=== PATIENT | female | born 1995 | race Caucasian/White ===

== ENCOUNTER 2016-03-13 01:13 | Emergency (ER) | payer OTHER ==
[2016-03-13 01:36] VITALS: RESP 18
[2016-03-13] MEDS ORDERED: HALOPERIDOL LACT 5 MG/ML INJ IVP ONE (01:44)
[2016-03-13] MEDS ORDERED: KETOROLAC 30 MG/1 ML SDV IVP ONE (01:44)
[2016-03-13] MEDS ORDERED: DEXAMETHASONE 10 MG/ML VIAL ONE (01:48)
[2016-03-13] MEDS ORDERED: DEXAMETHASONE VARIABLE DOSE IVP/PO ONE (02:00)
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
[2016-03-13 03:03] VITALS: BP 107/63; PULSE 83; TEMP 98.2; O2SAT 97
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
== END 2016-03-13 03:02 | disposition home or self-care (01) ==
LOC: EDUNIT#
DX: G43.909 Migraine, unspecified, not intractable, without status migrainosus (principal)
CPT/HCPCS: 96374; J1885

== ENCOUNTER 2016-10-14 10:41 | Emergency (ER) | payer OTHER ==
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
[2016-10-14 13:33] VITALS: BP 110/71; PULSE 79; RESP 16; TEMP 97.9; O2SAT 97
== END 2016-10-14 13:33 | disposition home or self-care (01) ==
DX: S20.212A Contusion of left front wall of thorax, initial encounter (principal); S16.1XXA Strain of muscle, fascia and tendon at neck level, initial encounter; F17.200 Nicotine dependence, unspecified, uncomplicated; V43.62XA Car passenger injured in collision with other type car in traffic accident, initial encounter; Y92.89 Other specified places as the place of occurrence of the external cause; Y99.8 Other external cause status; Y93.89 Activity, other specified

== ENCOUNTER 2018-07-04 16:23 | Emergency (ER) | payer OTHER ==
[2018-07-04] MEDS ORDERED: NS 1,000 ML IV ONE ×2 (16:45→16:57)
--- NOTE | 2018-07-04 16:45 | EDPHY ---
H & P Time Seen by Provider: 07/04/18 16:29 HPI/ROS: Chief complaint. Vaginal bleeding, syncope HPI. 23-year-old female presents with heavy vaginal bleeding and syncope. Her vaginal bleeding started this morning. She has been expecting her menstrual. For the last several days. Her menses began today 4 days late. She thinks that she may have place double tampon and tried to remove it and that is when the bleeding really started. She went to urgent care and had a syncopal episode while she was checking in. She had a vaginal exam and they did not find an extra tampon. They were taking orthostatic blood pressure and pulse and she had another syncopal episode. She denies cramping or pain. No chest pain or shortness of breath. The vaginal bleeding is somewhat unusually heavy. She has had previous syncope with getting injections. ROS 10 systems were reviewed and negative with the exception of the elements mentioned in the history of present illness Past Medical/Surgical History: Healthy Social History: Single, nonsmoker, no alcohol Smoking Status: Former smoker Physical Exam: General Appearance: Alert pleasant well-developed female mild distress. Initial heart rate is 95. However at my exam heart rate is about 110. Eyes: Pupils equal and round no pallor or injection. ENT, Mouth: Mucous membranes are moist. Respiratory: There are no retractions, lungs are clear to auscultation. Cardiovascular: Regular rate and rhythm. Gastrointestinal: Abdomen is soft and nontender, no masses, bowel sounds normal. Neurological: Awake and alert, sensory and motor exams grossly normal. Skin: Warm and dry, no rashes. Musculoskeletal: Neck is supple nontender. Extremities symmetrical, full range of motion. Psychiatric: Patient is oriented X 3, there is no agitation. Constitutional: Initial Vital Signs Temperature (C) 36.5 C 07/04/18 16:31 Heart Rate 95 07/04/18 16:31 Respiratory Rate 16 07/04/18 16:31 Blood Pressure 128/90 H 07/04/18 16:31 O2 Sat (%) 96 07/04/18 16:31 O2 Delivery Mode Room Air Allergies/Adverse Reactions: No Known Allergies Allergy (Verified 01/28/16 23:29) Home Medications: Medication Instructions Recorded DONALD 01/28/16 Medical Decision Making - Diagnostics Imaging Results: Imaging Impressions Pelvic/Renal Ultrasound 07/04/18 16:57 Impression: 1. Nonvisualization of the right ovary, despite transabdominal and endovaginal protocols. 2. Partial visualization of the left ovary, with a portion of its peripheral margin partially obscured by adjacent bowel gas. 3. Normal appearance of the endometrium and myometrium. Findings were discussed with LUKE DELGADO MD at 17:40, on 07/04/2018. Procedures: IV normal saline with 2 L of saline targeted. Toradol IV ED Course/Re-evaluation: Patient remained stable. She is no longer tachycardic After 2 L of fluids. She has been eating crackers and drinking fluids. She is ambulatory in the emergency department without any sense that she is going to pass out Patient and I discussed imaging and lab work. We discussed treatment plan including criteria for return importance follow-up and further evaluation. She expresses understanding and agreement I did discuss with her about the possibility of returning retained tampon. It was searched for at urgent care and they did not see it. Patient is comfortable that it is not present and declines pelvic exam Differential Diagnosis: 2 syncopal episodes with onset of heavy vaginal bleeding today. I considered ectopic , anemia. This is likely vasovagal - Data Points Laboratory Results: Laboratory Results 07/04/18 17:05 07/04/18 17:05 07/04/18 07/04/18 07/04/18 17:05 17:05 17:05 WBC 12.42 10^3/uL H 10^3/uL (3.80-9.50) RBC 4.09 10^6/uL L 10^6/uL (4.18-5.33) Hgb 12.6 g/dL g/dL (12.6-16.3) Hct 37.1 % L % (38.0-47.0) MCV 90.7 fL fL (81.5-99.8) MCH 30.8 pg pg (27.9-34.1) MCHC 34.0 g/dL g/dL (32.4-36.7) RDW 12.1 % % (11.5-15.2) Plt Count 272 10^3/uL 10^3/uL (150-400) MPV 10.1 fL fL (8.7-11.7) Neut % (Auto) 85.0 % H % (39.3-74.2) Lymph % (Auto) 8.9 % L % (15.0-45.0) [place] % (Auto) 5.4 % % (4.5-13.0) Eos % (Auto) 0.1 % L % (0.6-7.6) Baso % (Auto) 0.2 % L % (0.3-1.7) Nucleat RBC Rel Count 0.0 % % (0.0-0.2) Absolute Neuts (auto) 10.56 10^3/uL H 10^3/uL (1.70-6.50) Absolute Lymphs (auto) 1.10 10^3/uL 10^3/uL (1.00-3.00) Absolute Monos (auto) 0.67 10^3/uL 10^3/uL (0.30-0.80) Absolute Eos (auto) 0.01 10^3/uL L 10^3/uL (0.03-0.40) Absolute Basos (auto) 0.03 10^3/uL 10^3/uL (0.02-0.10) Absolute Nucleated RBC 0.00 10^3/uL 10^3/uL (0-0.01) Immature Gran % 0.4 % % (0.0-1.1) Immature Gran # 0.05 10^3/uL 10^3/uL (0.00-0.10) Sodium 135 mEq/L mEq/L (135-145) Potassium 4.3 mEq/L mEq/L (3.5-5.2) Chloride 102 mEq/L mEq/L (97-110) Carbon Dioxide 24 mEq/l mEq/l (22-31) Anion Gap 9 mEq/L mEq/L (6-14) BUN 15 mg/dL mg/dL (7-23) Creatinine 0.8 mg/dL mg/dL (0.6-1.0) Estimated GFR > 60 Glucose 100 mg/dL mg/dL (70-100) Calcium 9.6 mg/dL mg/dL (8.5-10.4) Beta HCG, Qual NEGATIVE Medications Given: Discontinued Medications Sodium Chloride (Ns) 1,000 mls @ 0 mls/hr IV EDNOW ONE; Wide Open PRN Reason: Protocol Stop: 07/04/18 16:46 Last Admin: 07/04/18 17:28 Dose: 1,000 mls Sodium Chloride (Ns) 1,000 mls @ 0 mls/hr IV EDNOW ONE; Wide Open PRN Reason: Protocol Stop: 07/04/18 16:58 Last Admin: 07/04/18 17:29 Dose: 1,000 mls Ketorolac Tromethamine (Toradol) 30 mg IVP EDNOW ONE Stop: 07/04/18 17:01 Last Admin: 07/04/18 17:29 Dose: Not Given Departure - Departure Disposition: Home, Routine, Self-Care Clinical Impression: Syncope and collapse, Dysmenorrhea Condition: Good Instructions: Syncope (ED) Additional Instructions: Drink plenty of fluids and stay hydrated Easy activity today and tomorrow Ibuprofen 600 mg every 6 hr to help with cramping and bleeding Return for worsening symptoms or another passing out episode. Follow-up with OBGYN for further evaluation Referrals: NONE *PRIMARY CARE P,. [Primary Care Provider] - As per Instructions Latisha Mayo DO [Doctor of Osteopathy] - 2-3 days, call for appt.
[2018-07-04] MEDS ORDERED: KETOROLAC 30 MG/1 ML SDV IVP ONE (17:00)
[2018-07-04 17:14] LABS: PLATELET COUNT 272 10^3/uL (150-400)
[2018-07-04 19:14] VITALS: BP 113/72
== END 2018-07-04 19:22 | disposition home or self-care (01) ==
LOC: EDUNIT#
DX: R55 Syncope and collapse (principal); N94.6 Dysmenorrhea, unspecified; E86.9 Volume depletion, unspecified; Z87.891 Personal history of nicotine dependence
CPT/HCPCS: J1885